=== PATIENT | female | born 1970 | race American Indian/Alaskan Native ===

== ENCOUNTER 2018-05-22 10:23 | Outpatient (CLI) | payer OTHER ==
--- NOTE | 2018-05-23 15:46 | Ultrasound Report ---
BILATERAL DIGITAL DIAGNOSTIC MAMMOGRAM with CAD and BILATERAL BREAST ULTRASOUND.: 05/22/18 10:23:00 CLINICAL: Bilateral breast lumps. History of cysts and bilateral cyst aspirations. COMPARISON:03/08/15 FINDINGS: The breasts are heterogeneously dense, which may obscure small masses.Bilateral upper outer palpable markers correlate with partially circumscribed asymmetries which are less prominent than on the prior exam. No architectural distortion or suspicious calcifications. Ultrasound of the right breast demonstrated several benign cysts. A cyst at 11 o'clock 4 cm from the nipple correlates with a palpable marker and measures 1.9 x 1.9 x 1.6 cm. It has a relatively thick but smooth wall. At least 2 adjacent subcentimeter benign cysts with internal echoes. A cyst at 9 o'clock centimeters from the nipple measures 1.3 x 1.3 x 0.5 cm and correlates with the mammographic asymmetry. Ultrasound of the left breast demonstrated a benign cyst at 2 o'clock 6 cm from the nipple measuring 2.1 x 0.9 x 1.6 cm. It has lobular contour and correlates with palpable marker. Several additional smaller benign cysts of the left breast. No solid mass or shadowing. IMPRESSION: Bilateral benign cysts and no suspicious finding. BI-RADS CATEGORY: 2 - - Benign RECOMMENDATION: Routine mammographic screening in one year. ACR BI-RADS MAMMOGRAPHIC CODES: 0 = Needs additional imaging evaluation; 1 = Negative; 2 = Benign; 3 = Probably benign; 4 = Suspicious; 5 = Malignant; 6 = Known biopsy-proven malignancy COMMENT: 1. Dense breast tissue, i.e., adenosis, fibrocystic changes, etc., may obscure an underlying neoplasm. 2. Approximately 10% of cancers are not detected with mammography. 3. A negative mammography report should not delay biopsy if a clinically suspicious mass is present. COMMENT: Patient follow-up letters are generated by our [employer] application.
== END 2018-05-22 10:24 | disposition home or self-care (01) ==
LOC: MAMMO 10:23
PROVIDERS: ATTEND Physician Assistant
DX: N63.20 Unspecified lump in the left breast, unspecified quadrant (principal); N63.10 Unspecified lump in the right breast, unspecified quadrant
CPT/HCPCS: 77066